=== PATIENT | male | born 1985 | race Hispanic/Latino ===

== ENCOUNTER 2022-01-23 10:53 | Emergency (ER) | payer SELFPAY | END 2022-01-23 12:27 | disposition home or self-care (01) | LOC: ERS 10:53 | DX: L03.115 Cellulitis of right lower limb (principal); F17.290 Nicotine dependence, other tobacco product, uncomplicated ==

== ENCOUNTER 2022-01-27 09:35 | Emergency (ER) | payer SELFPAY | END 2022-01-27 10:36 | disposition home or self-care (01) | LOC: ERS 09:35 | DX: L03.115 Cellulitis of right lower limb (principal); F17.290 Nicotine dependence, other tobacco product, uncomplicated | CPT/HCPCS: 36416; 99283 ==